=== PATIENT | male | born 1965 | race Caucasian/White ===

== ENCOUNTER → 2020-07-09 | Outpatient (CLI) | payer BC | END | disposition home or self-care (01) | LOC: CFH 14:53 | PROVIDERS: ATTEND Internal Medicine Cardiovascular Disease | DX: I35.8 Other nonrheumatic aortic valve disorders (principal); I25.10 Atherosclerotic heart disease of native coronary artery without angina pectoris; E78.00 Pure hypercholesterolemia, unspecified; R07.89 Other chest pain | CPT/HCPCS: 75571; 93306 ==